=== PATIENT | male | born 1995 | race American Indian/Alaskan Native ===

== ENCOUNTER 2020-01-24 18:26 | Emergency (ER) | payer BC, MEDICAID ==
--- NOTE | 2020-01-24 19:31 | Emergency Department Report ---
HPI - General Chief Complaint: Altered Mental Status Time Seen by Provider: 01/24/20 19:23 - HPI HPI: This is a 25-year-old -[place] male who presents to the emergency department from home after being evaluated by the mobile crisis unit. The 1013, filled out by a licensed professional counselor, states that the patient was observed to have "catatonic stupor, lack of verbal response, standing in one place for 5 to 6 hours." It also says that the patient is using "drugs daily, THC and possible other drugs" and that the patient is "nonmed compliant." It says that he has difficulty with ADLs including that he has not been eating or sleeping. He appears to have a history of schizophrenia. Other notes from the FLORICULTURE PROFESSOR say that he is hearing voices around him, seeing images around him, responding to internal stimuli and laughing inappropriately. For me, the patient was able to tell me his name. Otherwise he is not answering any questions. He will follow a few select commands. Overall he is a poor historian. He does not appear to have been in our emergency department previously. ED Past Medical Hx - Medications Home Medications: Home Medications Medication Instructions Recorded Confirmed Last Taken Type Unobtainable 01/24/20 01/24/20 Unknown History ED Review of Systems ROS: Stated complaint: PSYCH EVAL Other details as noted in HPI Comment: Unobtainable due to pts medical conditions Physical Exam - Physical Exam Physical Exam: GENERAL: The patient is well-developed well-nourished. HENT: Normocephalic. Atraumatic. Patient has moist mucous membranes. EYES: Extraocular motions are intact. NECK: Supple. Trachea is midline. CHEST/LUNGS: Clear to auscultation. There is no respiratory distress noted. HEART/CARDIOVASCULAR: Regular. There is no tachycardia. There is no murmur. ABDOMEN: Abdomen is soft, nontender. Patient has normal bowel sounds. SKIN: Skin is warm and dry. NEURO: Patient is awake but has not set anything except for his own name. Patient was seen occasionally following any command or request, but otherwise is mostly uncooperative and nonverbal. MUSCULOSKELETAL: There is no tenderness or deformity. There is no limitation range of motion. ED Medical Decision Making - Lab Data Result diagrams: 01/24/20 20:05 01/24/20 20:05 - Medical Decision Making This patient presents to the emergency department as a 1013 from the mobile crisis unit. Apparently the patient has not been sleeping or eating over the past 2 days. He has been seen standing in the same place for 5 to 6 hours at a time. The mobile crisis coyote hunter also says that the patient has been responding to some internal stimuli, hallucinating, and has a history of schizophrenia. At the time of my examination the patient is mostly nonverbal and uncooperative. He is awake and he has been seen following 1 or 2 commands. The patient would tell me his name but would not provide any further information. Patient also took a paper towel and was wiping some of his drool off of the chair he was sitting on. However, he will not follow other commands such as testing tube worker strength or answering any other questions. Patient does appear to be having some catatonic behavior and acute psychosis. He was seen by the psychiatric coyote hunter who agrees with the plan for inpatient stabilization. The blood work obtained has been unremarkable including CBC, metabolic panel and blood alcohol level. We have been unable to get a urine sample secondary to the patient's acute psychosis. If he has a urinary tract infection, we will add antibiotics. Vital signs have been reassuring throughout his ED course thus far including being afebrile. At this point I would consider this patient medically cleared for psychiatric placement. Critical Care Time: No Critical care attestation.: If time is entered above; I have spent that time in minutes in the direct care of this critically ill patient, excluding procedure time. ED Disposition Clinical Impression: Acute psychosis Schizophrenia Qualifiers: Schizophrenia type: unspecified Qualified Code(s): F20.9 - Schizophrenia, unspecified Disposition: [id number]/TX-[id number] PSY HOSP/PSY UNIT Is pt being admited?: No Condition: Stable Time of Disposition: 00:21
[2020-01-24 20:19] LABS: Hematocrit 38.5 % (35.5-45.6); Hemoglobin 13.2 gm/dl (11.8-15.2); Mean Corpuscular HGB Conc 34 % (32-34); Mean Corpuscular Volume 83 fl (84-94); Platelet Count 209 K/mm3 (140-440); Red Blood Count 4.66 M/mm3 (3.65-5.03); Red Cell Distribution Width 13.8 % (13.2-15.2)
[2020-01-24 20:22] LABS: Eosinophils % (Auto) 1.4 % (0.0-4.3); Monocytes % (Auto) 15.9 % (0.0-7.3)
[2020-01-24 20:23] LABS: Eosinophils # (Auto) 0.1 K/mm3 (0.0-0.4); Lymphocytes # (Auto) 1.9 K/mm3 (1.2-5.4); Monocytes # (Auto) 0.7 K/mm3 (0.0-0.8)
[2020-01-24 20:40] LABS: BUN/Creatinine Ratio 16; Blood Urea Nitrogen 13 mg/dL (9-20); Calcium 9.4 mg/dL (8.4-10.2); Hemolysis Index 5
--- NOTE | 2020-01-25 10:25 | Consultation ---
History of Present Illness - Reason for Consult Consult date: 01/25/20 Reason for consult: A/V hallucinations - History of Present Psychiatric Illness Jose Jorgensen is a 25y/o male patient who presented to the ER after the mobile crisis team was called. The patient was said to be in a catatonic state and standing in one spot for hours, not speaking and having A/V hallucinations. During my interview with the patient he is responding to internal stimuli. He is looking on the floor and to the side as if preoccupied or listening to something. The patient could not tell me in his own words why he was brought to the hospital. He states "I'm not sure." He verbalizes hearing voices. He says he can't make out what they are saying "but I can just hear them." He also millicent balizes "seeing faces." He says he has a history of "schizophrenia." The patient denies SI/HI. He verbalizes being compliant with his medications. PAST PSYCHIATRIC HISTORY Diagnoses: schizophrenia Suicide attempts or Self-harm behavior: Denies Prior psychiatric hospitalizations: Denies Substance Abuse history: alcohol Previous psychiatric medications tried: fluphenazine, cogentin Outpatient treatment: Yes PAST MEDICAL HISTORY: None reported Family Psychiatric History: None reported or documented SOCIAL HISTORY Marital Status: Single Living Arrangements: with mother Employment Status: Disabled Access to guns/weapons: None reported Education: high school History of Abuse: None reported Legal History: denies REVIEW OF SYSTEMS Constitutional: Negative for weight loss ENT: Negative for stridor Respiratory: Negative for cough or hemoptysis All other systems reviewed and are negative MENTAL STATUS EXAMINATION General Appearance and Behavior: Age appropriate, good hygiene, wearing appropriate clothes, fair eye contact Cooperation: Participating/engaged, but Guarded Psychomotor Behavior: Psychomotor normal Mood: "I guess okay" Affect and affective range: congruent with stated mood Thought Process: illogical Thought Content: hallucinations Speech: Normal rate, volume and rhythm Suicidal Ideation: Denies at present Homicidal Ideation: Denies Hallucinations: A/V Delusions: None elicited Impulse Control: Impaired Insight and Judgment: impaired insight and judgment Memory: Normal Attention: impaired Orientation: Alert, oriented Assessment and Plan (1) Schizophrenia Current Visit: Yes Status: Acute Treatment Plan MEDICATIONS: Fluphenazine 10mg po daily Cogentin 1mg po daily Trazodone 50mg po qhs Risks, benefits and alternatives of medications discussed with the patient, questions answered and consent obtained from patient. PSYCHOTHERAPY: Supportive psychotherapy provided MEDICAL: Per primary team DELIRIUM PRECAUTIONS: Please re-orient patient frequently, keep lights on during the day, and minimize benzodiazepines and opiates as these medications could worsen patient's confusion. FACTORY ASSEMBLER: DISPOSITION: Recommend acute inpatient psychiatric hospitalization at this time LEGAL STATUS: 1013 FOLLOW-UP: Will follow Thank you for the consult. Please contact with any questions and/or concerns. Medications and Allergies Allergies Allergy/AdvReac Type Severity Reaction Status Date / Time Unable to Assess Allergy Unverified 01/24/20 19:57 Home Medications Medication Instructions Recorded Confirmed Last Taken Type Unobtainable 01/24/20 01/24/20 Unknown History Mental Status Exam - Vital signs Last Vital Signs Temp 98.0 F 01/25/20 08:28 Pulse 75 01/25/20 08:28 Resp 20 01/25/20 08:28 BP 113/73 01/25/20 08:28 Pulse Ox 98 01/25/20 08:28 Results Result Diagrams: 01/24/20 20:05 01/24/20 20:05 Abnormal lab results 01/24/20 01/24/20 01/25/20 Range/Units 20:05 20:05 07:59 WBC 4.3 L (4.5-11.0) K/mm3 MCV 83 L (84-94) fl Lymph % (Auto) 45.0 H (13.4-35.0) % [place] % (Auto) 15.9 H (0.0-7.3) % Seg Neutrophils % 37.7 L (40.0-70.0) % Seg Neutrophils # 1.6 L (1.8-7.7) K/mm3 Potassium 3.5 L (3.6-5.0) mmol/L Glucose 73 L (75-100) mg/dL POC Glucose 64 L (70-105) mg/dL All other labs normal.
[2020-01-25 11:35] LABS: Bilirubin,Urine NEG (Negative); Blood,Urine NEG (Negative); Color,Urine Yellow (Yellow); Mucus,Urine FEW /HPF; Protein,Urine <15 mg/dL mg/dL (Negative)
[2020-01-25 11:39] LABS: RBC,Urine < 1.0 /HPF (0.0-6.0); WBC,Urine < 1.0 /HPF (0.0-6.0)
[2020-01-25 11:44] LABS: Amphetamine Screen,Urine Negative; Benzodiazepines Screen,Urine Negative; Cocaine Screen,Urine Negative; Methadone Screen,Urine Negative; Opiate Screen,Urine Negative
[2020-01-25] MEDS: BENZTROPINE 1 MG TAB PO SCH (12:00)
[2020-01-25 12:06] LABS: Cannabinoid Screen,Urine PRESUMPTIVE POSITIVE
[2020-01-25] MEDS: traZODone 50 MG TAB PO SCH (22:40)
--- NOTE | 2020-01-26 08:30 | Progress Note ---
Subjective - Reason for Consult Consult date: 01/26/20 Reason for consult: A/V hallucinations - Chief Complaint Chief complaint: During my interview with the patient he is lying down awake. He is quiet. He is still hallucinating but states "it's not that bad." He says he's seeing "faces looking at me." He says he hears "voices whispering saying stuff." He denies SI/HI. The patient says he feels "okay, sometimes up and down I guess." REVIEW OF SYSTEMS Constitutional: Negative for weight loss ENT: Negative for stridor Respiratory: Negative for cough or hemoptysis All other systems reviewed and are negative MENTAL STATUS EXAMINATION General Appearance and Behavior: Age appropriate, good hygiene, wearing appropriate clothes, fair eye contact Cooperation: Participating/engaged, but Guarded Psychomotor Behavior: Psychomotor normal Mood: "okay, up and down" Affect and affective range: congruent with stated mood Thought Process: illogical Thought Content: hallucinations Speech: Normal rate, volume and rhythm Suicidal Ideation: Denies at present Homicidal Ideation: Denies Hallucinations: A/V Delusions: None elicited Impulse Control: Impaired Insight and Judgment: impaired insight and judgment Memory: Normal Attention: impaired Orientation: Alert, oriented Assessment and Plan (1) Schizophrenia Current Visit: Yes Status: Acute Treatment Plan MEDICATIONS: Start Depakote DR 125mg po BID Risks, benefits and alternatives of medications discussed with the patient, questions answered and consent obtained from patient. PSYCHOTHERAPY: Supportive psychotherapy provided MEDICAL: Per primary team DELIRIUM PRECAUTIONS: Please re-orient patient frequently, keep lights on during the day, and minimize benzodiazepines and opiates as these medications could worsen patient's confusion. DIE CAST DIE MAKER: DISPOSITION: Recommend acute inpatient psychiatric hospitalization at this time LEGAL STATUS: 1013 FOLLOW-UP: Will follow Thank you for the consult. Please contact with any questions and/or concerns. Mental Status Exam - Vital signs Last Vital Signs Temp 98.5 F 01/26/20 07:49 Pulse 70 01/26/20 07:49 Resp 20 01/26/20 07:49 BP 134/71 01/26/20 07:49 Pulse Ox 100 01/26/20 07:49
[2020-01-26] MEDS: DIVALPROEX DR 125 MG TAB PO SCH ×2 (10:22→21:36)
[2020-01-26] MEDS: BENZTROPINE 1 MG TAB PO SCH (10:22)
[2020-01-26 19:52] VITALS: BP 103/65
[2020-01-26] MEDS: traZODone 50 MG TAB PO SCH (21:36)
== END 2020-01-27 00:30 ==
LOC: ED 18:26
DX: F20.9 Schizophrenia, unspecified (principal)
CPT/HCPCS: 36415; 80048; 80307; 80320; 81001; 82962; 85025; G0480